=== PATIENT | male | born 1970 | race Caucasian/White ===

== ENCOUNTER 2022-09-05 19:28 | Emergency (ER) | payer SELFPAY ==
[~2022-09-05] VITALS: Ht 175.3 cm; Wt 99.8 kg
[2022-09-06] VITALS: BP 161/93
[2022-09-06] MEDS ORDERED: CEPH500 PO (00:22)
== END 2022-09-06 00:42 | disposition home or self-care (01) ==
LOC: ER 19:28
DX: S63.260A Dislocation of metacarpophalangeal joint of right index finger, initial encounter (principal); S63.262A Dislocation of metacarpophalangeal joint of right middle finger, initial encounter; W18.30XA Fall on same level, unspecified, initial encounter
CPT/HCPCS: 12002; 26755; 73120; 73130; 90471; 90715; 96365-59; 99283-25; J0690; J1170